=== PATIENT | female | born 1990 | race African-American/Black ===

== ENCOUNTER 2018-04-02 19:33 | Emergency (ER) | payer OTHER ==
[2018-04-02 19:55] VITALS: Ht 172.7 cm
[2018-04-02 21:35] LABS: BASOPHIL % 0.3 % (0-2); PLATELET COUNT 246 x10^3mcL (130-400); RED CELL DISTRIBUTION WIDTH 12.7 % (11.5-14.5)
[2018-04-02 21:44] LABS: CALCIUM 9.4 mg/dL (8.5-10.1); CARBON DIOXIDE 24.9 mmol/L (21-32); CHLORIDE SERUM 103 mmol/L (98-107); CREATININE SERUM 0.8 mg/dL (0.6-1.0); GFR1 > 60 mL/min; GLUCOSE SERUM 83 mg/dL (74-106); POTASSIUM SERUM 3.8 mmol/L (3.5-5.1); SODIUM SERUM 137 mmol/L (136-145)
[2018-04-02 21:49] LABS: ALBUMIN 3.7 g/dL (3.4-5.0); ALKALINE PHOSPHATASE 58 U/L (46-116); ALT/SGPT 16 U/L (14-59); AMYLASE 57 U/L (25-115); AST/SGOT 14 U/L (15-37); BILIRUBIN TOTAL 0.3 mg/dL (0.20-1.00); LIPASE 189 IU/L (73-393); TOTAL PROTEIN, SERUM 7.9 g/dL (6.4-8.2)
[2018-04-03 00:10] VITALS: BP 112/68
== END 2018-04-03 00:10 | disposition home or self-care (01) ==
LOC: ED 19:33
PROVIDERS: Specialist
DX: K59.00 Constipation, unspecified (principal); Z88.6 Allergy status to analgesic agent
CPT/HCPCS: 36415; 83880; Q0092

== ENCOUNTER 2018-09-09 12:00 | Emergency (ER) | payer OTHER ==
[~2018-09-09] VITALS: Ht 170.2 cm; Wt 68.0 kg
[2018-09-09 12:10] VITALS: Ht 170.2 cm; Wt 68.0 kg
[2018-09-09 13:57] VITALS: BP 114/66
== END 2018-09-09 15:09 | disposition home or self-care (01) ==
LOC: ED 12:00
DX: F41.9 Anxiety disorder, unspecified (principal); Z88.6 Allergy status to analgesic agent

== ENCOUNTER 2019-06-04 13:19 | Emergency (ER) | payer OTHER ==
[~2019-06-04] VITALS: Ht 172.7 cm; Wt 64.9 kg
[2019-06-04 13:28] VITALS: Ht 172.7 cm; Wt 64.9 kg
[2019-06-04 16:43] VITALS: BP 105/67
== END 2019-06-04 16:43 | disposition home or self-care (01) ==
LOC: ED 13:19
DX: N39.0 Urinary tract infection, site not specified (principal); K59.00 Constipation, unspecified; Z88.6 Allergy status to analgesic agent